=== PATIENT | female | born 1985 | race American Indian/Alaskan Native ===

== ENCOUNTER 2017-10-21 18:26 | Emergency (ER) | payer MEDICAID ==
[2017-10-21 19:31] LABS: Hematocrit 32.3 % (30.3-42.9); Hemoglobin 10.1 gm/dl (10.1-14.3); Mean Corpuscular HGB Conc 31 % (30-34); Mean Corpuscular Hemoglobin 24 pg (28-32); Mean Corpuscular Volume 76 fl (79-97); Platelet Count 257 K/mm3 (140-440); Red Blood Count 4.27 M/mm3 (3.65-5.03); Red Cell Distribution Width 19.1 % (13.2-15.2)
[2017-10-21 19:33] LABS: BUN/Creatinine Ratio 13; Blood Urea Nitrogen 8 mg/dL (7-17); Calcium 9.4 mg/dL (8.4-10.2); Hemolysis Index 6
[2017-10-21] MEDS ORDERED: REGLAN IV ONE (21:18)
[2017-10-21] MEDS ORDERED: MORPHINE IV ONE ×2 (21:18→22:56)
--- NOTE | 2017-10-21 21:20 | Emergency Department Report ---
HPI - General Chief Complaint: Seizure Time Seen by Provider: 10/21/17 20:57 - HPI HPI: 32-year-old female presents to the emergency department, dropped off by her mother, with complaint of a migraine headache and seizures. Patient says that she has a history of migraines and is currently having a right -sided headache, 8 out of 10 in intensity, that is consistent with her previous migraines. She denies any vision change, slurred speech or any other acute neurological deficits. Patient admits to a seizure last night and another this morning. She has a seizure history but has been out of her seizure medication, Neurontin 1200 mg twice daily. She says that the seizure medication also works for her chronic tremors. She made an appointment with a new neurologist, since she just moved to the area, Dr. Molina, but does not have an appointment 18th of this month. She also has a past medical history of hypertension, hyperlipidemia and bipolar disorder. ED Past Medical Hx - Past Medical History Hx Hypertension: Yes Hx Seizures: Yes Hx Psychiatric Treatment: Yes (bipolar) Additional medical history: elevated cholesterol - Surgical History Past Surgical History?: No - Social History Smoking Status: Never Smoker Substance Use Type: None - Medications Home Medications: Home Medications Medication Instructions Recorded Confirmed Last Taken Type Gabapentin [Neurontin] 1,200 mg PO BID #60 tablet 10/22/17 Unknown Rx SUMAtriptan SUCCINATE [Imitrex] 50 mg PO ONCE PRN #5 tablet 10/22/17 Unknown Rx ED Review of Systems ROS: Stated complaint: SEIZURE/HEADACHE Other details as noted in HPI Comment: All other systems reviewed and negative Constitutional: denies: chills, fever Eyes: denies: eye pain, eye discharge, vision change ENT: denies: ear pain, throat pain Respiratory: denies: cough, shortness of breath, wheezing Cardiovascular: denies: chest pain, palpitations Gastrointestinal: denies: abdominal pain, nausea, diarrhea Genitourinary: denies: urgency, dysuria, discharge Musculoskeletal: denies: back pain, joint swelling, arthralgia Skin: denies: rash, lesions Neurological: headache, other (seizures). denies: numbness Physical Exam - Physical Exam Vital Signs: Vital Signs 10/21/17 10/21/17 18:55 20:45 Temperature 98.5 F Pulse Rate 69 Respiratory 18 18 Rate Blood Pressure 165/90 O2 Sat by Pulse 100 Oximetry Physical Exam: GENERAL: The patient is well-developed well-nourished. HENT: Normocephalic. Atraumatic. Patient has moist mucous membranes. EYES: Extraocular motions are intact. Pupils equal reactive to light bilaterally. There is fatigable horizontal nystagmus. NECK: Supple. Trachea is midline. CHEST/LUNGS: Clear to auscultation. There is no respiratory distress noted. HEART/CARDIOVASCULAR: Regular. There is no tachycardia. There is no murmur. ABDOMEN: Abdomen is soft, nontender. Patient has normal bowel sounds. There is no abdominal distention. SKIN: Skin is warm and dry. NEURO: The patient is awake, alert, and oriented. The patient is cooperative. The patient has no focal neurologic deficits. The patient has normal speech. Cranial nerves II through XII grossly intact. MUSCULOSKELETAL: There is no tenderness or deformity. There is no limitation range of motion. There is no evidence of acute injury. ED Course Vital Signs 10/21/17 10/21/17 18:55 20:45 Temperature 98.5 F Pulse Rate 69 Respiratory 18 18 Rate Blood Pressure 165/90 O2 Sat by Pulse 100 Oximetry ED Medical Decision Making - Lab Data Result diagrams: 10/21/17 19:09 10/21/17 19:09 - Radiology Data Radiology results: report reviewed PROCEDURE: CT HEAD/BRAIN WO CON TECHNIQUE: Computerized tomography of the head was performed without contrast material. HISTORY: headache COMPARISON: No prior studies are available for comparison. FINDINGS: Skull and scalp: Normal. Paranasal sinuses: Normal. Ventricles and subarachnoid spaces: Normal. Cerebrum: No evidence of hemorrhage, acute infarction or mass . Cerebellum and brainstem: No evidence of hemorrhage, acute infarction or mass. Vasculature: Normal. Comments: None. IMPRESSION: Normal Examination Transcribed By: CO Dictated By: LIZA KAUR MD Electronically Authenticated By: LIZA KAUR MD Signed Date/Time: 10/22/17 011 - Medical Decision Making Patient presents with a right-sided headache that she believes to be one of her migraine headaches. She also had a seizure last night and this morning but did not present in any type of postictal state. She received some Reglan and morphine but still continued to have her headache. A CT scan of the head without contrast was done that does not show any bleed, shift, mass, ischemia or any other acute process. Patient was given a dose of Imitrex and her headache almost completely resolved. She never had any focal, motor or sensory deficits and her cranial nerves were always intact. Vital signs stable throughout her ED course. Labs were unremarkable and did not show any etiology of her symptoms. The patient has been on gabapentin 1200 mg twice daily for the past 5 or 6 years for seizure control but has been out of the medication the past 2 weeks. She does not have a neurology appointment for about 2 weeks. The patient was given a small amount of Imitrex in case she has a return of her migraine headache and she was given a refill of the gabapentin. She was also given a referral for 2 different neurology physicians in case she is trying to get an earlier appointment. She is instructed to return to the emergency Department with any worsening of her symptoms or any acute distress. - Differential Diagnosis migraine headache, tension headache, brain bleed Critical Care Time: No Critical care attestation.: If time is entered above; I have spent that time in minutes in the direct care of this critically ill patient, excluding procedure time. ED Disposition Clinical Impression: History of seizures, Medication refill Headache Qualifiers: Headache type: unspecified Headache chronicity pattern: unspecified pattern Intractability: not intractable Qualified Code(s): R51 - Headache Disposition: DC-01 TO HOME OR SELFCARE Is pt being admited?: No Condition: Stable Instructions: Gabapentin (By mouth), Sumatriptan (By mouth), Migraine Headache (ED), Acute Headache (ED) Additional Instructions: Please follow-up with your neurologist as soon as possible and see if he can move up the scheduled appointment. Just in case, I have given you a referral for 2 different other neurologists in the area. I am restarting you on your seizure medication. I am also giving him a prescription for migraine headache medication to be used as needed. Return to the emergency Department with any worsening of your symptoms or any acute distress. Prescriptions: Gabapentin [Neurontin] 1,200 mg PO BID #60 tablet SUMAtriptan SUCCINATE [Imitrex] 50 mg PO ONCE PRN #5 tablet PRN Reason: Migraine Headache Referrals: PRIMARY CARE,MD [Referring] - GENO GLYNN MD [Staff Physician] - 2-3 Days AVINASH IZQUIERDO MD [Staff Physician] - 2-3 Days Time of Disposition: 01:48
[2017-10-21 23:22] VITALS: BP 139/70
[2017-10-21] MEDS ORDERED: IMITREX SUB-Q ONE (23:56)
[2017-10-21] MEDS ORDERED: NACL 0.9% 1000 ML 1,000 ML IV ONE (23:58)
--- NOTE | 2017-10-22 01:16 | Cat Scan Report ---
FINAL REPORT PROCEDURE: CT HEAD/BRAIN WO CON TECHNIQUE: Computerized tomography of the head was performed without contrast material. HISTORY: headache COMPARISON: No prior studies are available for comparison. FINDINGS: Skull and scalp: Normal. Paranasal sinuses: Normal. Ventricles and subarachnoid spaces: Normal. Cerebrum: No evidence of hemorrhage, acute infarction or mass . Cerebellum and brainstem: No evidence of hemorrhage, acute infarction or mass. Vasculature: Normal. Comments: None. IMPRESSION: Normal Examination
== END 2017-10-22 02:30 | disposition home or self-care (01) ==
LOC: ED 18:26
DX: R51 Headache (principal); R56.9 Unspecified convulsions; I10 Essential (primary) hypertension; F31.9 Bipolar disorder, unspecified; E78.00 Pure hypercholesterolemia, unspecified; Z88.0 Allergy status to penicillin; Z76.0 Encounter for issue of repeat prescription; Z88.8 Allergy status to other drugs, medicaments and biological substances
CPT/HCPCS: 36415; 70450; 80048; 85027; 96372; 96374; 96375; 96376; 99284; J2270; J2765; J7030; J3030

== ENCOUNTER 2018-06-02 12:17 | Emergency (ER) | payer MEDICAID ==
--- NOTE | 2018-06-02 12:30 | Emergency Department Report ---
ED Recheck HPI - General Chief Complaint: Medical Clearance Stated Complaint: RAN OUT OF MH MEDS Time Seen by Provider: 06/02/18 12:27 Source: patient Mode of arrival: Ambulatory Limitations: No Limitations - History of Present Illness Initial Comments: PT IS A 32 YO WHO COMES TO ER FOR MED REFILL. SHE IS PREG AND ON EFFEXOR. SHE WAS TAKEN OFF HER OTHER MENTAL HEALTH MEDS BY PSYCH BUT HAS CONTINUED TO TAKE THE EFFEXOR. PSYCH STATES THAT IT IS OK SHE TAKE THIS THROUGH HER PREG. SHE JUST COULD NOT GET AN APPOINTMENT TODAY. SHE HAS BEEN OUT 3 DAYS. SHE GETS N/V WHEN OFF IT - Related Data Previous Rx's Medication Instructions Recorded Last Taken Type Gabapentin [Neurontin] 600 mg PO BID #60 tablet 11/27/17 Unknown Rx SUMAtriptan SUCCINATE [Imitrex] 50 mg PO BID PRN #15 tab 11/27/17 Unknown Rx Venlafaxine HCl [Venlafaxine ER] 150 mg PO BID #60 cap.er.24h 06/02/18 Unknown Rx Allergies Allergy/AdvReac Type Severity Reaction Status Date / Time divalproex sodium Allergy Unknown Verified 10/21/17 19:00 [From Depakote] lithium Allergy Unknown Verified 10/21/17 19:00 Penicillins Allergy Unknown Verified 10/21/17 19:00 ED Review of Systems ROS: Stated complaint: RAN OUT OF MH MEDS Other details as noted in HPI Comment: All other systems reviewed and negative ED Past Medical Hx - Past Medical History Previous Medical History?: Yes Hx Hypertension: Yes Hx Seizures: Yes Hx Psychiatric Treatment: Yes (bipolar) Additional medical history: elevated cholesterol - Surgical History Past Surgical History?: No - Family History Family history: no significant - Social History Smoking Status: Never Smoker Substance Use Type: None - Medications Home Medications: Home Medications Medication Instructions Recorded Confirmed Last Taken Type Gabapentin [Neurontin] 600 mg PO BID #60 tablet 11/27/17 Unknown Rx SUMAtriptan SUCCINATE [Imitrex] 50 mg PO BID PRN #15 tab 11/27/17 Unknown Rx Venlafaxine HCl [Venlafaxine ER] 150 mg PO BID #60 cap.er.24h 06/02/18 Unknown Rx ED Physical Exam - General Limitations: No Limitations General appearance: alert, in no apparent distress - Head Head exam: Present: normocephalic - Eye Eye exam: Present: normal appearance, PERRL - ENT ENT exam: Present: mucous membranes moist - Neck Neck exam: Present: normal inspection - Respiratory Respiratory exam: Present: normal lung sounds bilaterally - Cardiovascular Cardiovascular Exam: Present: regular rate - GI/Abdominal GI/Abdominal exam: Present: soft - Rectal Rectal exam: Present: deferred - Extremities Exam Extremities exam: Present: normal inspection - Back Exam Back exam: Present: normal inspection, full ROM - Neurological Exam Neurological exam: Present: alert, oriented X3, CN II-XII intact, normal gait - Psychiatric Psychiatric exam: Present: normal affect, normal mood - Skin Skin exam: Present: warm, dry, intact ED Recheck MDM - Core Measures Measure Exclusions: not indicated - Medical Decision Making VSS NORMAL IN TRIAGE. NURSE HAS BEEN ASKED TO DOCUMENT NO HI NO SI SIMPLE MED REFILL SHE DOES HAVE FOLLOW UP SCHEDULED AMBULATORY DC HOME WITH FOLLOW UP. Critical care attestation.: If time is entered above; I have spent that time in minutes in the direct care of this critically ill patient, excluding procedure time. ED Disposition Clinical Impression: Medication refill Disposition: DC-01 TO HOME OR SELFCARE Is pt being admited?: No Does the pt Need Aspirin: No Condition: Stable Additional Instructions: FOLLOW UP WITH MD MARES Prescriptions: Venlafaxine HCl [Venlafaxine ER] 150 mg PO BID #60 cap.er.24h Referrals: [facility] [Outside] - 3-5 Days Time of Disposition: 12:27
== END 2018-06-02 12:39 | disposition home or self-care (01) ==
LOC: ED 12:17
DX: F31.9 Bipolar disorder, unspecified (principal); Z76.0 Encounter for issue of repeat prescription; I10 Essential (primary) hypertension; E78.00 Pure hypercholesterolemia, unspecified; Z88.0 Allergy status to penicillin; Z88.8 Allergy status to other drugs, medicaments and biological substances
CPT/HCPCS: 99281

== ENCOUNTER 2018-11-27 09:51 | Emergency (ER) | payer MEDICAID ==
[2018-11-27 10:09] VITALS: BP 137/84
--- NOTE | 2018-11-27 12:15 | Emergency Department Report ---
ED ENT HPI - General Chief complaint: Upper Respiratory Infection Stated complaint: SORE THROAT/COUGH/CHEST PAIN Time Seen by Provider: 11/27/18 12:06 Source: patient Mode of arrival: Ambulatory Limitations: No Limitations - History of Present Illness Initial comments: Chief complaint: "I have had a sore throat." HPI: This is a very pleasant 33 year old female with a significant past medical history of hypertension, bipolar disorder, seizure disorder,dyslipidemia who presents with sore throat, productive cough with clear phlegm. She denies fever. Her 2 month old female infant at home has thrush. She is concerned about potentially contacting or developing a thrush infection. MD complaint: sore throat -: Gradual, days(s) (2) Severity: mild Quality: aching Consistency: constant Improves with: none Worsens with: swallowing - Related Data Previous Rx's Medication Instructions Recorded Last Taken Type Gabapentin [Neurontin] 600 mg PO BID #60 tablet 11/27/17 Unknown Rx SUMAtriptan SUCCINATE [Imitrex] 50 mg PO BID PRN #15 tab 11/27/17 Unknown Rx Venlafaxine HCl [Venlafaxine ER] 150 mg PO BID #60 cap.er.24h 06/02/18 Unknown Rx Azithromycin [Zithromax TAB] 250 mg PO QDAY #6 tablet 11/27/18 Unknown Rx Allergies Allergy/AdvReac Type Severity Reaction Status Date / Time divalproex sodium Allergy Unknown Verified 10/21/17 19:00 [From Depakote] lithium Allergy Unknown Verified 10/21/17 19:00 Penicillins Allergy Unknown Verified 10/21/17 19:00 ED Dental HPI - General Chief complaint: Upper Respiratory Infection Stated complaint: SORE THROAT/COUGH/CHEST PAIN Time Seen by Provider: 11/27/18 12:06 Source: patient Mode of arrival: Ambulatory Limitations: No Limitations - Related Data Previous Rx's Medication Instructions Recorded Last Taken Type Gabapentin [Neurontin] 600 mg PO BID #60 tablet 11/27/17 Unknown Rx SUMAtriptan SUCCINATE [Imitrex] 50 mg PO BID PRN #15 tab 11/27/17 Unknown Rx Venlafaxine HCl [Venlafaxine ER] 150 mg PO BID #60 cap.er.24h 06/02/18 Unknown Rx Azithromycin [Zithromax TAB] 250 mg PO QDAY #6 tablet 11/27/18 Unknown Rx Allergies Allergy/AdvReac Type Severity Reaction Status Date / Time divalproex sodium Allergy Unknown Verified 10/21/17 19:00 [From Depakote] lithium Allergy Unknown Verified 10/21/17 19:00 Penicillins Allergy Unknown Verified 10/21/17 19:00 ED Review of Systems ROS: Stated complaint: SORE THROAT/COUGH/CHEST PAIN Other details as noted in HPI Constitutional: malaise. denies: fever ENT: throat pain Respiratory: cough. denies: shortness of breath, wheezing Gastrointestinal: denies: abdominal pain, nausea, vomiting Skin: denies: rash, lesions ED Past Medical Hx - Past Medical History Previous Medical History?: Yes Hx Hypertension: Yes Hx Seizures: Yes Hx Psychiatric Treatment: Yes (bipolar) Additional medical history: elevated cholesterol - Surgical History Past Surgical History?: No - Social History Smoking Status: Never Smoker Substance Use Type: Alcohol - Medications Home Medications: Home Medications Medication Instructions Recorded Confirmed Last Taken Type Gabapentin [Neurontin] 600 mg PO BID #60 tablet 11/27/17 Unknown Rx SUMAtriptan SUCCINATE [Imitrex] 50 mg PO BID PRN #15 tab 11/27/17 Unknown Rx Venlafaxine HCl [Venlafaxine ER] 150 mg PO BID #60 cap.er.24h 06/02/18 Unknown Rx Azithromycin [Zithromax TAB] 250 mg PO QDAY #6 tablet 11/27/18 Unknown Rx ED Physical Exam - General Limitations: No Limitations General appearance: alert - Head Head exam: Present: atraumatic, normocephalic - Eye Eye exam: Present: normal appearance. Absent: scleral icterus, conjunctival injection - ENT ENT exam: Present: other (edematous exudative tonsils) - Neck Neck exam: Present: normal inspection, full ROM. Absent: tenderness, meningismus - Respiratory Respiratory exam: Present: normal lung sounds bilaterally. Absent: respiratory distress, wheezes, rales, rhonchi - Cardiovascular Cardiovascular Exam: Present: regular rate, normal rhythm, normal heart sounds - Neurological Exam Neurological exam: Present: alert, oriented X3 - Psychiatric Psychiatric exam: Present: normal affect, normal mood - Skin Skin exam: Present: warm, dry, intact, normal color ED Course Vital Signs 11/27/18 10:07 Temperature 99.1 F Pulse Rate 94 H Respiratory 20 Rate Blood Pressure 137/84 O2 Sat by Pulse 98 Oximetry ED Medical Decision Making - Medical Decision Making Carmelina presents with URI symptoms with acute exudative pharyngitis. Will cover which for strep with azithromycin. History of penicillin allergy. Critical care attestation.: If time is entered above; I have spent that time in minutes in the direct care of this critically ill patient, excluding procedure time. ED Disposition Clinical Impression: Acute pharyngitis, Upper respiratory infection Disposition: TO HOME OR SELFCARE Is pt being admited?: No Does the pt Need Aspirin: No Condition: Stable Instructions: Pharyngitis (ED), Upper Respiratory Infection (ED) Prescriptions: Azithromycin [Zithromax TAB] 250 mg PO QDAY #6 tablet Referrals: [facility] [Outside] - as needed Forms: Work/School Release Form(ED)
== END 2018-11-27 13:28 | disposition home or self-care (01) ==
LOC: ED 09:51
DX: J02.9 Acute pharyngitis, unspecified (principal); J06.9 Acute upper respiratory infection, unspecified; I10 Essential (primary) hypertension; F31.9 Bipolar disorder, unspecified; G40.909 Epilepsy, unspecified, not intractable, without status epilepticus; E78.5 Hyperlipidemia, unspecified; Z88.0 Allergy status to penicillin; Z79.899 Other long term (current) drug therapy; Z88.8 Allergy status to other drugs, medicaments and biological substances
CPT/HCPCS: 99282

== ENCOUNTER 2020-04-21 09:19 | Emergency (ER) | payer MEDICAID ==
[2020-04-21 09:28] VITALS: BP 168/93
--- NOTE | 2020-04-21 10:18 | Emergency Department Report ---
ED Recheck HPI - General Chief Complaint: Recheck/Abnormal Lab/Rx Stated Complaint: RX REFILL Time Seen by Provider: 04/21/20 09:30 Source: patient Mode of arrival: Ambulatory Limitations: No Limitations - History of Present Illness Initial Comments: This is a 34-year-old female nontoxic, well nourished in appearance, no acute signs of distress presents to the ED for medication refill. Patient stated she currently takes venlafaxine HCL ER 150 mg BID for depression and is going out of town for the next week and was unable to get in touch with her primary care doctor. Patient otherwise denies any other complaints or symptoms. Last medication dose was yesterday. Patient denies any depression, suicidal homicidal ideation. Patient denies any chest pain, shortness of breath, fever, chills, nausea, vomiting, headache or stiff neck. MD Complaint: medication refill request -: days(s) Returns Today for: request for prescription Symptoms Since Prior Visit: no new symptoms Associated Symptoms: none. denies: fever, chills, chest pain, shortness of breath, rash, malaise, nasuea, abdominal pain - Related Data Previous Rx's Medication Instructions Recorded Last Taken Type Gabapentin [Neurontin] 600 mg PO BID #60 tablet 11/27/17 Unknown Rx SUMAtriptan SUCCINATE [Imitrex] 50 mg PO BID PRN #15 tab 11/27/17 Unknown Rx Venlafaxine HCl [Venlafaxine ER] 150 mg PO BID #60 cap.er.24h 06/02/18 Unknown Rx Azithromycin [Zithromax TAB] 250 mg PO QDAY #6 tablet 11/27/18 Unknown Rx Venlafaxine HCl [Venlafaxine HCl 150 mg PO BID #30 tab.er.24 04/21/20 Unknown Rx ER] Allergies Allergy/AdvReac Type Severity Reaction Status Date / Time divalproex sodium Allergy Unknown Verified 10/21/17 19:00 [From Depakote] lithium Allergy Unknown Verified 10/21/17 19:00 Penicillins Allergy Unknown Verified 10/21/17 19:00 ED Review of Systems ROS: Stated complaint: RX REFILL Other details as noted in HPI Comment: All other systems reviewed and negative Constitutional: denies: chills, fever Eyes: denies: eye pain, eye discharge, vision change ENT: denies: ear pain, throat pain Respiratory: denies: cough, shortness of breath, wheezing Cardiovascular: denies: chest pain, palpitations Endocrine: no symptoms reported Gastrointestinal: denies: abdominal pain, nausea, diarrhea Genitourinary: denies: urgency, dysuria, discharge Musculoskeletal: denies: back pain, joint swelling, arthralgia Skin: denies: rash, lesions Neurological: denies: headache, weakness, paresthesias Psychiatric: denies: anxiety, depression Hematological/Lymphatic: denies: easy bleeding, easy bruising ED Past Medical Hx - Past Medical History Previous Medical History?: Yes Hx Hypertension: Yes Hx Seizures: Yes Hx Psychiatric Treatment: Yes (bipolar) Additional medical history: elevated cholesterol - Surgical History Past Surgical History?: No - Social History Smoking Status: Never Smoker Substance Use Type: None - Medications Home Medications: Home Medications Medication Instructions Recorded Confirmed Last Taken Type Gabapentin [Neurontin] 600 mg PO BID #60 tablet 11/27/17 Unknown Rx SUMAtriptan SUCCINATE [Imitrex] 50 mg PO BID PRN #15 tab 11/27/17 Unknown Rx Venlafaxine HCl [Venlafaxine ER] 150 mg PO BID #60 cap.er.24h 06/02/18 Unknown Rx Azithromycin [Zithromax TAB] 250 mg PO QDAY #6 tablet 11/27/18 Unknown Rx Venlafaxine HCl [Venlafaxine HCl 150 mg PO BID #30 tab.er.24 04/21/20 Unknown Rx ER] ED Physical Exam - General Limitations: No Limitations General appearance: alert, in no apparent distress - Head Head exam: Present: atraumatic, normocephalic - Eye Eye exam: Present: normal appearance - Neck Neck exam: Present: normal inspection, full ROM - Respiratory Respiratory exam: Absent: respiratory distress - Cardiovascular Cardiovascular Exam: Present: regular rate - Extremities Exam Extremities exam: Present: full ROM - Back Exam Back exam: Present: full ROM - Neurological Exam Neurological exam: Present: alert, oriented X3, normal gait - Psychiatric Psychiatric exam: Present: normal affect, normal mood. Absent: depressed, agitated, anxious, flat affect, manic, homicidal ideation, suicidal ideation - Skin Skin exam: Present: warm, dry, intact, normal color. Absent: rash ED Course Vital Signs 04/21/20 09:27 Temperature 98.6 F Pulse Rate 78 Respiratory 18 Rate Blood Pressure 168/93 O2 Sat by Pulse 99 Oximetry - Reevaluation(s) Reevaluation #1: 04/21/20 10:17 Patient is speaking in full sentences with no signs of distress noted. ED Recheck MDM - Medical Decision Making Patient is stable and was examined by me. Vital signs are stable. Patient has her empty bottle. I will refill patient's medication for 15 days and was instructed to follow-up with her primary care doctor as soon as she gets back. Patient was instructed to follow-up with a primary care doctor in 3-5 days or if symptoms worsen and continue return to emergency room as soon as possible. At time of discharge, the patient does not seem toxic or ill in appearance. No acute signs of distress noted. Patient agrees to discharge treatment plan of care. No further questions noted by the patient. Critical care attestation.: If time is entered above; I have spent that time in minutes in the direct care of this critically ill patient, excluding procedure time. ED Disposition Clinical Impression: Medication refill Disposition: DC-01 TO HOME OR SELFCARE Is pt being admited?: No Does the pt Need Aspirin: No Condition: Stable Instructions: Venlafaxine tablets Additional Instructions: Follow-up with a primary care doctor in 3-5 days or if symptoms worsen and continue return to emergency room as soon as possible. Prescriptions: Venlafaxine HCl [Venlafaxine HCl ER] 150 mg PO BID #30 tab.er.24 Referrals: PRIMARY MD SAMIRA [Primary Care Provider] - 3-5 Days JAMILA SALDAÑA MD [Staff Physician] - 3-5 Days Time of Disposition: 10:15
== END 2020-04-21 10:15 | disposition home or self-care (01) ==
LOC: ED 09:19
DX: F32.9 Major depressive disorder, single episode, unspecified (principal); Z76.0 Encounter for issue of repeat prescription; I10 Essential (primary) hypertension; R56.9 Unspecified convulsions; Z79.2 Long term (current) use of antibiotics; Z79.899 Other long term (current) drug therapy; Z88.0 Allergy status to penicillin; Z88.8 Allergy status to other drugs, medicaments and biological substances
CPT/HCPCS: 99282

== ENCOUNTER 2020-09-06 09:07 | Emergency (ER) | payer MEDICAID ==
--- NOTE | 2020-09-06 09:36 | Emergency Department Report ---
Minor Respiratory - HPI Chief Complaint: Sore Throat Stated Complaint: SORE THROAT Time Seen by Provider: 09/06/20 09:36 Duration: 5 Days Pain Location: Facial, Throat, Chest Severity: mild Minor Respiratory: Yes Rhinorrhea, Yes Sore Throat, Yes Able to Tolerate Fluids, Yes Cough, No Ear Pain, No Sick Contacts, No Hemoptysis, No Chest Pain, No Shortness of Breath, No Fever Other History: 35 YO AA COMES TO ER WITH CO SORE THROAT- JUST SEEN A FEW DAYS AGO AT [facility] AND HAD NEG STREP AND WAS SENT HOME WITH NO MEDS. SYMPTOMS HAVE WORSENED- EYES ARE TEARING AND PINK; STILL HAS SORE THROAT; COUGH; NO FEVER OR CHILLS. PT DID HAVE COVID IMMUNIZATIONS. [employer] INTACT. CONTROLLING SECRETIONS. BP ELEVATED ON TRIAGE. SHE HAS HX OF A/C HTN. SHE DID NOT TAKE HER HCTZ THIS AM BEAUSE SHE WAS NOT FEELING WELL. SHE DENIE ANY CP OR SOB. SHE HAS ALSO BEEN TAKING OTC SYMPTOM RELIEF ITEMS THAT SHE SAID SHE DID NOT LOOK TO SEE IF THEY WERE FOR PEOPLE WITH HTN. SHE WAS EDUCATED ON READING CONTENTS TO BE SURE THEY ARE NOT INC. HER BP. SHE VERALIZES UNDERSTANDING ED Review of Systems ROS: Stated complaint: ALLERGIC REACTION Other details as noted in HPI Comment: All other systems reviewed and negative ED Past Medical Hx - Past Medical History Previous Medical History?: Yes Hx Hypertension: Yes Hx Seizures: Yes Hx Psychiatric Treatment: Yes (bipolar) Additional medical history: elevated cholesterol - Surgical History Past Surgical History?: No - Family History Family history: no significant - Social History Smoking Status: Never Smoker Substance Use Type: None - Medications Home Medications: Home Medications Medication Instructions Recorded Confirmed Last Taken Type Venlafaxine HCl [Venlafaxine HCl 150 mg PO BID #30 tab.er.24 04/21/20 Unknown Rx ER] Azithromycin [Zithromax Z-GERMÁN] 250 mg PO DAILY #6 tablet 09/06/20 Unknown Rx Cetirizine HCl [ZyrTEC] 10 mg PO DAILY #30 capsule 09/06/20 Unknown Rx Fluticasone [Flonase] 1 spray NS QDAY #1 bottle 09/06/20 Unknown Rx predniSONE [Deltasone] 20 mg PO DAILY #5 tablet 09/06/20 Unknown Rx Minor Respiratory Exam - Exam General: Vital signs noted. No distress. Alert and acting appropriately. HEENT: Yes Pharyngeal Erythema, Yes Pharyngeal Exudates, Yes Moist Mucous Membranes, Yes Rhinorrhea, Yes Conjuctival Injection, No Frontal Tenderness, No Maxillary Tenderness Ear: Neither TM Bulge, Neither TM Erythema, Neither EAC Pain, Neither EAC Discharge Neck: Yes Adenopathy, Yes Supple Lungs: Yes Good Air Exchange, Yes Cough, No Wheezes, No Ronchi, No Stridor, No Labored Respirations, No Retractions, No Use of Accessory Muscles, No Other Abnormal Lung Sounds Heart: Yes Regular, No Murmur Abdomen: Yes Normal Bowel Sounds, No Tenderness, No Peritoneal Signs Skin: No Rash, No Edema Neurologic: Alert and oriented, no deficits. Musculoskeletal: Unremarkable. ED Course Vital Signs 09/06/20 09/06/20 09/06/20 09:18 09:26 09:28 Temperature 99.1 F 99.1 F Pulse Rate 89 100 H Respiratory 16 16 16 Rate Blood Pressure 189/115 190/115 [Right] O2 Sat by Pulse 100 100 100 Oximetry ED Medical Decision Making - Radiology Data Radiology results: report reviewed, image reviewed NAP - Medical Decision Making Vital Signs (72 hours) 09/06/20 09/06/20 09/06/20 09:18 09:26 09:28 Temperature 99.1 F 99.1 F Pulse Rate 89 100 H Respiratory 16 16 16 Rate Blood Pressure 189/115 190/115 [Right] O2 Sat by Pulse 100 100 100 Oximetry MEDICATED WITH IM CLINDA- ALLERGY TO PCN / KEFLEX MEDICATED FOR PAIN GIVEN HER DAILY HCTZ DOSE HERE IN ER XRAY NAP AMBULATORY TAKING PO DC HOME WITH DC PLAN OF CARE INCLUDING MEDS, DIET, ACTIVITY AND FOLLOW UP. SHE VERBALIZES UNDERSTANDING OF PLAN OF CARE. PCP REFERRAL GIVEN - Differential Diagnosis RO PNA/URI- Critical care attestation.: If time is entered above; I have spent that time in minutes in the direct care of this critically ill patient, excluding procedure time. ED Disposition Clinical Impression: URI (upper respiratory infection), Chronic hypertension Disposition: DC-01 TO HOME OR SELFCARE Is pt being admited?: No Does the pt Need Aspirin: No Condition: Stable Instructions: Upper Respiratory Infection, Adult, [id number], Hypertension (ED) Additional Instructions: MEDS ORDERED TODAY FOLLOW UP WITH PCP- REFERRAL BELOW MOTRIN OR TYLENOL FOR PAIN OR FEVER DRINK A LOT OF WATER Prescriptions: predniSONE [Deltasone] 20 mg PO DAILY #5 tablet Fluticasone [Flonase] 1 spray NS QDAY #1 bottle Azithromycin [Zithromax Z-GERMÁN] 250 mg PO DAILY #6 tablet Cetirizine HCl [ZyrTEC] 10 mg PO DAILY #30 capsule Referrals: JAMILA SALDAÑA MD [Staff Physician] - 3-5 Days Time of Disposition: 09:58
[2020-09-06] MEDS ORDERED: IBUPROFEN 800 MG TAB PO ONE (09:59)
[2020-09-06] MEDS ORDERED: hydroCHLOROthiazide 25 MG TAB PO ONE (09:59)
[2020-09-06] MEDS ORDERED: dexAMETHasone 4 MG/ML VIAL IM ONE (09:59)
[2020-09-06] MEDS ORDERED: CLINDAMYCIN 150 MG/ML 2 ML VIAL IM NR (10:15)
[2020-09-06 11:00] VITALS: BP 160/88
--- NOTE | 2020-09-06 14:25 | XRay Report ---
CHEST 2 VIEWS INDICATION / CLINICAL INFORMATION: COUGH. COMPARISON: None available. FINDINGS: SUPPORT DEVICES: None. HEART / MEDIASTINUM: No significant abnormality. LUNGS / PLEURA: No significant pulmonary or pleural abnormality. No pneumothorax. ADDITIONAL FINDINGS: No significant additional findings. IMPRESSION: 1. No acute findings. Signer Name: Primitivo Crump MD Signed: 09/06/2020 2:21 PM Workstation Name: [id number]
== END 2020-09-06 11:00 | disposition home or self-care (01) ==
LOC: ED 09:07
DX: J06.9 Acute upper respiratory infection, unspecified (principal); I10 Essential (primary) hypertension; R56.9 Unspecified convulsions; F31.9 Bipolar disorder, unspecified; Z79.2 Long term (current) use of antibiotics; Z79.899 Other long term (current) drug therapy; Z88.0 Allergy status to penicillin; Z88.8 Allergy status to other drugs, medicaments and biological substances
CPT/HCPCS: 71046; 96372; 99283; J1100

== ENCOUNTER 2020-09-08 16:05 | Emergency (ER) | payer MEDICAID ==
--- NOTE | 2020-09-09 00:30 | Emergency Department Report ---
ED Allergic Reaction HPI - General Chief complaint: Allergic Reaction Stated complaint: ALLERGIC REACTION Time Seen by Provider: 09/09/20 00:24 Source: patient Mode of arrival: Ambulatory Limitations: No Limitations - History of Present Illness Initial Comments: Patient is a 35-year-old female that presents emergency room with complaints of allergic reaction. Patient states she was seen here 2 days ago and was given medications for upper respiratory infection. Patient states that she started having lip swelling and her throat is still sore. Patient states it is difficult to swallow. Patient states she was given prednisone, sertraline, Z-Antonio, Flonase at her last visit and she is compliant with the medications. Patient denies chest pain or shortness of breath. Patient denies fever and chills. Patient states her cough is better. Patient denies recent travel. Patient denies recent international travel. Patient denies exposure to the novel coronavirus. Patient denies sick contacts. Patient denies fever and chills. Patient denies cough. Patient denies diarrhea. Patient denies coming in contact with anybody with symptoms of the novel coronavirus. Visit from 09/06/2020 was reviewed. Complaint: allergic reaction -: Sudden Symptoms: itching, lip swelling, difficulty swallowing. denies: difficulty breathing, orolingual swelling, hoarseness, syncopy, dizziness, nausea, vomiting, abdominal pain Severity: severe Treatment Prior to Arrival: steroids, other Previous Allergy History: none - Related Data Previous Rx's Medication Instructions Recorded Last Taken Type Venlafaxine HCl [Venlafaxine HCl 150 mg PO BID #30 tab.er.24 04/21/20 Unknown Rx ER] Cetirizine HCl [ZyrTEC] 10 mg PO DAILY #30 capsule 09/06/20 Unknown Rx Fluticasone [Flonase] 1 spray NS QDAY #1 bottle 09/06/20 Unknown Rx Clindamycin [Clindamycin CAP] 300 mg PO Q8H 30 Days #10 capsule 09/09/20 Unknown Rx methylPREDNISolone [Medrol 4MG 4 mg PO DAILY 6 Days #1 tab.ds.pk 09/09/20 Unknown Rx DOSEPAK (21 tabs)] Allergies Allergy/AdvReac Type Severity Reaction Status Date / Time divalproex sodium Allergy Unknown Verified 10/21/17 19:00 [From Depakote] lithium Allergy Unknown Verified 10/21/17 19:00 Penicillins Allergy Unknown Verified 10/21/17 19:00 ED Review of Systems ROS: Stated complaint: ALLERGIC REACTION Other details as noted in HPI Constitutional: denies: chills, fever Eyes: denies: eye pain, eye discharge, vision change ENT: throat pain. denies: ear pain Respiratory: denies: cough, shortness of breath, wheezing Cardiovascular: denies: chest pain, palpitations Endocrine: no symptoms reported Gastrointestinal: denies: abdominal pain, nausea, diarrhea Genitourinary: denies: urgency, dysuria, discharge Musculoskeletal: denies: back pain, joint swelling, arthralgia Skin: denies: rash, lesions Neurological: denies: headache, weakness, paresthesias Psychiatric: denies: anxiety, depression Hematological/Lymphatic: denies: easy bleeding, easy bruising ED Past Medical Hx - Past Medical History Previous Medical History?: Yes Hx Hypertension: Yes Hx Seizures: Yes Hx Psychiatric Treatment: Yes (bipolar) Additional medical history: elevated cholesterol - Surgical History Past Surgical History?: No - Family History Family history: no significant - Social History Smoking Status: Never Smoker Substance Use Type: None - Medications Home Medications: Home Medications Medication Instructions Recorded Confirmed Last Taken Type Venlafaxine HCl [Venlafaxine HCl 150 mg PO BID #30 tab.er.24 04/21/20 Unknown Rx ER] Cetirizine HCl [ZyrTEC] 10 mg PO DAILY #30 capsule 09/06/20 Unknown Rx Fluticasone [Flonase] 1 spray NS QDAY #1 bottle 09/06/20 Unknown Rx Clindamycin [Clindamycin CAP] 300 mg PO Q8H 30 Days #10 capsule 09/09/20 Unknown Rx methylPREDNISolone [Medrol 4MG 4 mg PO DAILY 6 Days #1 tab.ds.pk 09/09/20 Unknown Rx DOSEPAK (21 tabs)] ED Physical Exam - General Limitations: No Limitations General appearance: alert, in no apparent distress - Head Head exam: Present: atraumatic, normocephalic - Eye Eye exam: Present: normal appearance - ENT ENT exam: Present: mucous membranes moist, other (Lip swelling noted.) - Neck Neck exam: Present: normal inspection - Respiratory Respiratory exam: Present: normal lung sounds bilaterally. Absent: respiratory distress, wheezes, rales, rhonchi, stridor - Cardiovascular Cardiovascular Exam: Present: regular rate, normal rhythm. Absent: systolic murmur, diastolic murmur, rubs, gallop - GI/Abdominal GI/Abdominal exam: Present: soft, normal bowel sounds - Extremities Exam Extremities exam: Present: normal inspection - Back Exam Back exam: Present: normal inspection - Neurological Exam Neurological exam: Present: alert, oriented X3 - Psychiatric Psychiatric exam: Present: normal affect, normal mood - Skin Skin exam: Present: warm, dry, intact, normal color. Absent: rash ED Course Vital Signs 09/08/20 09/09/20 09/09/20 16:34 00:30 02:30 Temperature 98.4 F Pulse Rate 98 H 79 83 Respiratory 18 17 Rate Blood Pressure 200/114 213/132 Blood Pressure 170/102 [Right] O2 Sat by Pulse 98 99 Oximetry 09/09/20 03:08 Temperature Pulse Rate Respiratory Rate Blood Pressure Blood Pressure 185/89 [Right] O2 Sat by Pulse Oximetry - Reevaluation(s) Reevaluation #1: I discussed all results and clinical findings with patient. I discussed plan of care with patient. Patient agrees with plan of care. Patient is stable for discharge. Patient will be discharged home. Patient given discharge instructions. Patient voiced understanding of discharge instructions. Patient instructed to stop Zithromax and prednisone. We will change the patient's antibiotic just in case is the cause of the allergy. And just in case this is a side effect to prednisone we will change from prednisone and place her on Medrol. Patient will need to follow-up with an top distribution executive and a primary care as soon as possible. 09/09/20 01:52 Reevaluation #2: Prior to discharge, the patient's blood pressure was rechecked and was noted to be elevated. The nurse was given an order to give the patient clonidine. Patient received clonidine. 09/09/20 02:17 Reevaluation #3: Patient blood pressure recheck after clonidine the patient blood pressure is much better. Patient blood pressure is 185/89. Patient is discharged home. 09/09/20 03:05 ED Medical Decision Making - Lab Data Result diagrams: 09/09/20 00:52 09/09/20 00:52 - Medical Decision Making She is a 35-year-old female that presents emergency room with complaints of sore throat and lip swelling. Patient seen in this ER for a upper for infection given sertraline, Flonase, prednisone and Zithromax. Patient is allergic to penicillin. Patient was given clindamycin at the time of her last visit she felt much better. Patient states she then developed this reaction. Patient had labs done which were essentially unremarkable. Patient instructed to stop prednisone and Zithromax. Patient will be started on clindamycin and Medrol. Patient will refer to an top distribution executive and back to her primary care. Patient is stable for discharge. Patient does not require further emergency medical services. Patient discharged home. Patient's not require inpatient services. - Differential Diagnosis Upper respiratory infection, allergy, side effect, sore throat Critical care attestation.: If time is entered above; I have spent that time in minutes in the direct care of this critically ill patient, excluding procedure time. ED Disposition Clinical Impression: Lip swelling, Chronic hypertension URI (upper respiratory infection) Qualifiers: URI type: unspecified URI Qualified Code(s): J06.9 - Acute upper respiratory infection, unspecified Allergic drug reaction Qualifiers: Encounter type: initial encounter Qualified Code(s): T78.40XA - Allergy, unspecified, initial encounter Disposition: TO HOME OR SELFCARE Is pt being admited?: No Does the pt Need Aspirin: No Condition: Stable Instructions: Upper Respiratory Infection, Adult, [id number], Hypertension (ED) Additional Instructions: Patient to follow-up with primary care in 2 to 3 days. Patient to follow-up with top distribution executive in 2 to 3 days. Patient to rest. Patient to increase water. Patient to avoid strenuous exercise or heavy lifting until cleared by top distribution executive and primary care. Patient to take Tylenol or ibuprofen as needed for pain. Patient to take meds as directed. Patient to return to the ER if condition worsens, changes or new symptoms arise. Patient to stop Zithromax and prednisone and start new medications.. Patient to start Cepacol lozenges, OTC. Prescriptions: Clindamycin [Clindamycin CAP] 300 mg PO Q8H 30 Days #10 capsule methylPREDNISolone [Medrol 4MG DOSEPAK (21 tabs)] 4 mg PO DAILY 6 Days #1 tab.ds.pk Referrals: MERLYN HOGAN MD [Primary Care Provider] - 2-3 Days TONE SCHAFFER MD [Staff Physician] - 2-3 Days Time of Disposition: :05
[2020-09-09 01:33] LABS: Hematocrit 37.1 % (30.3-42.9); Hemoglobin 11.6 gm/dl (10.1-14.3); Mean Corpuscular HGB Conc 31 % (30-34); Mean Corpuscular Volume 80 fl (79-97); Platelet Count 263 K/mm3 (140-440); Red Blood Count 4.66 M/mm3 (3.65-5.03)
[2020-09-09 01:48] LABS: Alanine Aminotransferase 19 units/L (7-56); Albumin 4.1 g/dL (3.9-5); Blood Urea Nitrogen 16 mg/dL (7-17); Calcium 9.1 mg/dL (8.4-10.2); Hemolysis Index 0
[2020-09-09 01:50] LABS: BUN/Creatinine Ratio 27
[2020-09-09] MEDS ORDERED: methylPREDNISolone Sod Succinate 125 MG/2 ML INJ IM ONE (01:59)
[2020-09-09] MEDS ORDERED: cloNIDine 0.2 MG TAB PO ONE (02:26)
[2020-09-09 03:08] VITALS: BP 185/89
== END 2020-09-09 03:03 | disposition home or self-care (01) ==
LOC: ED 16:05
DX: T78.40XA Allergy, unspecified, initial encounter (principal); T50.905A Adverse effect of unspecified drugs, medicaments and biological substances, initial encounter; J06.9 Acute upper respiratory infection, unspecified; I10 Essential (primary) hypertension; R22.0 Localized swelling, mass and lump, head; F31.9 Bipolar disorder, unspecified; E78.00 Pure hypercholesterolemia, unspecified; Z88.0 Allergy status to penicillin; Z88.8 Allergy status to other drugs, medicaments and biological substances; Z79.899 Other long term (current) drug therapy; Z86.69 Personal history of other diseases of the nervous system and sense organs; X58.XXXA Exposure to other specified factors, initial encounter; Y92.89 Other specified places as the place of occurrence of the external cause
CPT/HCPCS: 36415; 80053; 85027; 86308; 96372; 99283; J2930

== ENCOUNTER 2021-02-20 17:22 | Emergency (ER) | payer MEDICAID ==
--- NOTE | 2021-02-20 22:36 | Emergency Department Report ---
ED General Adult HPI - General Chief complaint: Medical Clearance Stated complaint: MEDICATION REFILL Source: patient Mode of arrival: Ambulatory Limitations: No Limitations - History of Present Illness Initial comments: Patient is a 35-year-old -Congolese female with a history of hypertension, anxiety and depression and bipolar disorder and who is approximately 26 weeks gestation presented to the ED depression for refills of her mental health medications, Effexor 75 mg twice a day that she ran out of 2 days ago. Patient states that she contacted her psychiatrist who advised to come to the ED to get a refill of her medication temporarily for 1 month pending follow-up with her psychiatrist who is currently on vacation. Patient denies suicidal ideation, homicidal ideation, hallucination, nausea and vomiting, diarrhea, dysuria, urinary frequency and urgency, fever, chills, cough, sore throat or headache and shortness of breath or chest pain. MD Complaint: Medication refill -: Sudden, days(s) (2) Location: head Radiation: non-radiation Severity scale (0 -10): 0 Consistency: constant Improves with: none Worsens with: none Associated Symptoms: denies other symptoms. denies: confusion, chest pain, cough, diaphoresis, fever/chills, headaches, loss of appetite, malaise, nausea/vomiting, rash, seizure, shortness of breath, syncope, weakness Treatments Prior to Arrival: none - Related Data Previous Rx's Medication Instructions Recorded Last Taken Type Venlafaxine HCl [Venlafaxine HCl 150 mg PO BID #30 tab.er.24 04/21/20 Unknown Rx ER] Cetirizine HCl [ZyrTEC] 10 mg PO DAILY #30 capsule 09/06/20 Unknown Rx Fluticasone [Flonase] 1 spray NS QDAY #1 bottle 09/06/20 Unknown Rx Clindamycin [Clindamycin CAP] 300 mg PO Q8H 30 Days #10 capsule 09/09/20 Unknown Rx methylPREDNISolone [Medrol 4MG 4 mg PO DAILY 6 Days #1 tab.ds.pk 09/09/20 Unknown Rx DOSEPAK (21 tabs)] Venlafaxine [Effexor] 75 mg PO Q12H #60 tablet 02/20/21 Unknown Rx Allergies Allergy/AdvReac Type Severity Reaction Status Date / Time divalproex sodium Allergy Unknown Verified 02/20/21 21:52 [From Depakote] lithium Allergy Unknown Verified 02/20/21 21:52 Penicillins Allergy Unknown Verified 02/20/21 21:52 sulfamethoxazole Allergy Unknown Verified 02/20/21 21:52 [From Bactrim] trimethoprim [From Bactrim] Allergy Unknown Verified 02/20/21 21:52 ED Review of Systems ROS: Stated complaint: MEDICATION REFILL Other details as noted in HPI Constitutional: denies: chills, fever Eyes: denies: eye pain, eye discharge, vision change ENT: denies: ear pain, throat pain Respiratory: denies: cough, shortness of breath, wheezing Cardiovascular: denies: chest pain, palpitations Endocrine: no symptoms reported Gastrointestinal: denies: abdominal pain, nausea, diarrhea Genitourinary: denies: urgency, dysuria, discharge Musculoskeletal: denies: back pain, joint swelling, arthralgia Skin: denies: rash, lesions Neurological: denies: headache, weakness, paresthesias Psychiatric: denies: anxiety, depression Hematological/Lymphatic: denies: easy bleeding, easy bruising ED Past Medical Hx - Past Medical History Hx Hypertension: Yes Hx Seizures: Yes Hx Psychiatric Treatment: Yes (bipolar) Additional medical history: elevated cholesterol - Social History Smoking Status: Never Smoker Substance Use Type: None - Medications Home Medications: Home Medications Medication Instructions Recorded Confirmed Last Taken Type Venlafaxine HCl [Venlafaxine HCl 150 mg PO BID #30 tab.er.24 04/21/20 Unknown Rx ER] Cetirizine HCl [ZyrTEC] 10 mg PO DAILY #30 capsule 09/06/20 Unknown Rx Fluticasone [Flonase] 1 spray NS QDAY #1 bottle 09/06/20 Unknown Rx Clindamycin [Clindamycin CAP] 300 mg PO Q8H 30 Days #10 capsule 09/09/20 Unknown Rx methylPREDNISolone [Medrol 4MG 4 mg PO DAILY 6 Days #1 tab.ds.pk 09/09/20 Unknown Rx DOSEPAK (21 tabs)] Venlafaxine [Effexor] 75 mg PO Q12H #60 tablet 02/20/21 Unknown Rx ED Physical Exam - General Limitations: No Limitations General appearance: alert, in no apparent distress - Head Head exam: Present: atraumatic, normocephalic, normal inspection - Eye Eye exam: Present: normal appearance, PERRL, EOMI Pupils: Present: normal accommodation - ENT ENT exam: Present: normal exam, normal orophraynx, mucous membranes moist, TM's normal bilaterally, normal external ear exam - Neck Neck exam: Present: normal inspection, full ROM - Respiratory Respiratory exam: Present: normal lung sounds bilaterally. Absent: respiratory distress, wheezes, rhonchi, chest wall tenderness, accessory muscle use, decreased breath sounds - Cardiovascular Cardiovascular Exam: Present: regular rate, normal rhythm, normal heart sounds. Absent: systolic murmur, diastolic murmur, rubs, gallop - GI/Abdominal GI/Abdominal exam: Present: soft, normal bowel sounds. Absent: tenderness, guarding, rebound, hyperactive bowel sounds, hypoactive bowel sounds - Extremities Exam Extremities exam: Present: normal inspection, full ROM, normal capillary refill - Back Exam Back exam: Present: normal inspection, full ROM. Absent: tenderness, CVA tenderness (R), CVA tenderness (L), muscle spasm, paraspinal tenderness, vertebral tenderness - Neurological Exam Neurological exam: Present: alert, oriented X3, CN II-XII intact, normal gait, reflexes normal - Psychiatric Psychiatric exam: Present: normal affect, normal mood, anxious - Skin Skin exam: Present: warm, dry, intact, normal color. Absent: rash ED Course Vital Signs 02/20/21 21:51 Temperature 98.5 F Pulse Rate 79 Respiratory 18 Rate Blood Pressure 138/70 O2 Sat by Pulse 100 Oximetry ED Medical Decision Making - Medical Decision Making This is a 35-year-old -Congolese female with a history of hypertension, anxiety and depression and bipolar disorder and who is approximately 26 weeks gestation presented to the ED depression for refills of her mental health medications, Effexor 75 mg twice a day that she ran out of 2 days ago. Patient states that she contacted her psychiatrist who advised to come to the ED to get a refill of her medication temporarily for 1 month pending follow-up with her psychiatrist who is currently on vacation. In the ED, patient is alert and oriented x3 and is not in any distress. Patient is hemodynamically stable. Patient was given a refill of Effexor 75 mg twice a day and advised to follow-up with her psychiatrist as previously scheduled. Patient was otherwise advised return to the ED immediately if symptoms get worse. - Differential Diagnosis anxiety; medication refill, Bipolar d/o Critical care attestation.: If time is entered above; I have spent that time in minutes in the direct care of this critically ill patient, excluding procedure time. ED Disposition Clinical Impression: Anxiety and depression, Encounter for medication refill Disposition: 01 HOME / SELF CARE / HOMELESS Is pt being admited?: No Does the pt Need Aspirin: No Condition: Stable Instructions: Generalized Anxiety Disorder, Adult Additional Instructions: Take your regular medications and follow-up with the primary care physician in 7 to 10 days for reevaluation. Return to the ED immediately if symptoms get worse. Prescriptions: Venlafaxine [Effexor] 75 mg PO Q12H #60 tablet Referrals: [facility] [Provider Group] - 3-5 Days Time of Disposition: 22:39 Print Language: LATVIAN
[2021-02-20 23:48] VITALS: BP 138/59
== END 2021-02-20 23:52 | disposition home or self-care (01) ==
LOC: ED 17:22
DX: Z76.0 Encounter for issue of repeat prescription (principal); F41.8 Other specified anxiety disorders; I10 Essential (primary) hypertension; F31.9 Bipolar disorder, unspecified; E78.00 Pure hypercholesterolemia, unspecified; Z88.8 Allergy status to other drugs, medicaments and biological substances; Z88.0 Allergy status to penicillin; Z88.1 Allergy status to other antibiotic agents
CPT/HCPCS: 99282